=== PATIENT | female | born 1955 | race Two or more races ===

== ENCOUNTER 2019-04-10 10:27 | Observation (INO) ==
--- NOTE | 2019-04-10 10:56 | XRay Report ---
SINGLE VIEW CHEST CLINICAL HISTORY: Atypical chest pain. FINDINGS: An AP, portable, upright chest radiograph is obtained. No prior studies are available for c omparison at the time of dictation. The examination is degraded by portable technique and patient r otation. The heart is enlarged and there is atherosclerotic calcification with uncoiling of the thor acic aorta. The pulmonary vasculature is noncongested. There is mild elevation of the left hemidiaphr agm with bibasilar atelectasis. No airspace consolidation or large pleural effusion is identified. No pneumothorax is seen. The skeletal structures are osteopenic. The bony thorax is grossly intact. An indeterminant catheter projects over the left upper quadrant of the abdomen. Surgical clips project o jeremiah the lower neck. IMPRESSION: Cardiomegaly with no acute cardiopulmonary abnormality. Electronically signed by: Chemo Uribe M.D. 04/10/2019 10:54 AM
[2019-04-10 11:07] LABS: Basophils # (auto) 0.02 K/uL (0-0.2); Basophils % (auto) 0.2 %; Eosinophils # (auto) 0.31 K/uL (0-0.5); Eosinophils % (auto) 3.2 %; Hematocrit (blood only) 30.1 % (37-47); Hemoglobin 10.2 g/dL (12.0-16.0); Immature Granulocytes # (auto) 0.02 K/uL (0.00-0.02); Immature Granulocytes % (auto) 0.2 %; Lymphocytes # (auto) 0.76 K/uL (1.2-3.4); Lymphocytes % (auto) 7.9 %; Mean Corpuscular Hgb Conc 33.9 g/dL (32-36); Mean Corpuscular Volume 91.5 fL (80-100); Mean Platelet Volume 10.3 fL (7.4-10.4); Monocytes % (auto) 9.4 %; Neutrophils # (auto) 7.59 K/uL (1.4-6.5); Neutrophils % (auto) 79.1 %; Platelet Count 199 K/uL (130-400); RDW Coefficient of Variation 14.6 % (11.5-14.5); Red Blood Count 3.29 M/uL (4.2-5.4)
[2019-04-10 11:19] LABS: INR 1.1 (0.9-1.1); Partial Thromboplastin Ratio 0.9; Partial Thromboplastin Time 23.4 Seconds (21.0-31.0); Prothrombin Time 11.4 Seconds (9.0-12.0)
[2019-04-10 11:45] LABS: Alanine Aminotransferase 14 U/L (12-78); Albumin Globulin Ratio 0.5 (0.9-2); Albumin Level 2.1 gm/dl (3.4-5.0); Alkaline Phosphatase 82 U/L (45-117); Aspartate Aminotransferase 14 U/L (15-37); BUN Creatinine Ratio 5.4 (10-20); Bilirubin,Total 0.4 mg/dl (0.2-1); Blood Urea Nitrogen 54 mg/dl (7-18); Calcium 8.4 mg/dl (8.5-10.1); Carbon Dioxide 27 mmol/L (21-32); Chloride 97 mmol/L (98-107); Creatinine Clr Calc Pharmacy 4.7 ml/min; Est GFR (African American) 4.4; Est GFR (Non-African American) 3.8; Globulin 4.4 gm/dl (2.5-4.0); Glucose 97 mg/dl (70-99); Magnesium 1.8 mg/dl (1.8-2.4); Potassium 3.5 mmol/L (3.5-5.1); Sodium 134 mmol/L (136-145); Total Protein 6.5 gm/dl (6.4-8.2); Troponin I < 0.015 ng/ml (0-0.045)
--- NOTE | 2019-04-10 12:59 | History & Physical Report ---
Date of Service April 10, 2019 Assessment & Plan (1) Chest pain: - Admit to tele for observation for r/o - Trend cardiac biomarkers, initial set was negative at OSH yesterday and again this morning. Next set at 1900. - EKG reviewed as above, NSR with ST wave changes or signs of ischemia - Check 2 D echo now - Consult cardiology - If negative enzymes can consider a stress test tomorrow morning (2) Tobacco use disorder: - Possible that this is a pleurisy causing the chest pain, nonreproducible on palpation. - Smokes currently, 1/2 ppd, cessation encouraged, offered nicotine patch but pt declined. - Trial solumedrol 40 mg Q8H to see if this improves pain - CTPE from 04/09/19 reviewed from OSH and negative for PE (3) Chronic kidney disease with peritoneal dialysis as preferred modality, stage 5: (4) Hx of kidney transplant: - nephrology consulted - Transplant initially in 1994 and again in 2001. - Continue Renvela 3200 mg PO with meals, Prograf 1 mg PO daily, cinacalcet 30 PO Q2D, multivitamin - Pt has had peritoneal dialysis for many years, site appears well healed, no erythema surrounding (5) Breast cancer: - Noted, [id number], R sided s/p surgical resection, no hx of chemotherapy. (6) Ovarian cancer: - Noted, [id number], s/p surgical resection (7) Basal cell carcinoma of left hand: - noted, stable (8) Osteoporosis: - Continnue Vit D. supplementation (9) Osteoarthritis: (10) Sarcopenia: -Albumin = 2.1, will order boost ACHS (11) Hx of deep venous thrombosis: -History of such many years ago, no longer on anticoagulation (12) Anemia: -Hemoglobin = 10.2, hematocrit 30.0, -Continue Epogen IV q. 14 days, Auryxia 420 mg p.o. TID, (13) GERD (gastroesophageal reflux disease): (14) Barretts esophagus: - Noted, continue pantoprazole daily - Continue reglan 5 mg QID (15) Restless leg syndrome: - Stable, note that reglan may exaggerate this (16) HTN (hypertension): -Continue carvedilol 12.5 mg twice daily, ASA 81 mg daily, hydralazine 50 mg daily, (17) HLD (hyperlipidemia): - Cont rosuvastatin 20 mg HS (18) DVT prophylaxis: - teds, heparin subq History of Present Illness Primary Care Provider: Samir Vance This is a 63-year-old female with PMHx of breast cancer status post radiation, no chemotherapy, HTN, HLD, kidney transplant, CKD, peritoneal dialysis, osteoporosis, restless leg syndrome, ovarian cancer, 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 Patient presents to our facility from [facility], [facility], for increased chest pain. She was in the ER yesterday and reported that chest pain had begun on 04/07/2019. It radiates from her left chest to her shoulder blades and up the left jaw, she also vomited once this morning. Pt states pain is waxing and waning in nature, and is aggravated whenever she takes deep breaths, leans forward, or attempts to go up one flight of stairs. She has developed a nonproductive cough in the past 3 days. Patient denies fevers, chills or sweats. She has been doing home peritoneal dialysis herself. Patient follows with [facility] dialysis once per month. Patient reports that she refused to be transferred from [facility] is [facility] yesterday while in their ER. Patient went home from the ER last evening and then proceeded to come to our hospital this morning. She reports her chest pain was the same upon leaving the hospital last night, overnight and this morning. Her nausea has been controlled with Zofran. Chest pain is slightly better at this time. She reports no other acute complaints. Allergies Allergy/AdvReac Type Severity Reaction Status Date / Time No Known Allergies Allergy Unverified 04/10/19 12:31 Home Medications Home Medications Medication Instructions Recorded Confirmed Type B complex-vitamin C-folic acid 0.8 mg PO DAILY 04/10/19 04/10/19 History [Nephro-Es] aspirin [Aspir-Low] 81 mg PO DAILY 04/10/19 04/10/19 History calcitriol 0.25 mcg PO DAILY 04/10/19 04/10/19 History carvedilol 12.5 mg PO BID 04/10/19 04/10/19 History cholecalciferol (vitamin D3) 1,000 unit PO DAILY 04/10/19 04/10/19 History [Vitamin D3] cinacalcet [Sensipar] 30 mg PO Q2D 04/10/19 04/10/19 History cyanocobalamin (vitamin B-12) 500 mcg PO DAILY 04/10/19 04/10/19 History [Vitamin B-12] epoetin caty [Epogen] 10,000 unit IV Q14D 04/10/19 04/10/19 History ferric citrate [Auryxia] 420 mg PO TID 04/10/19 04/10/19 History hydralazine 50 mg PO DAILY 04/10/19 04/10/19 History iron,carbonyl-vitamin C [Vitron-C] 1 tab PO DAILY 04/10/19 04/10/19 History metoclopramide HCl 5 mg PO QID 04/10/19 04/10/19 History multivitamin 1 tab PO DAILY 04/10/19 04/10/19 History pantoprazole 40 mg PO DAILY 04/10/19 04/10/19 History rosuvastatin 20 mg PO HS 04/10/19 04/10/19 History sevelamer carbonate [Renvela] 3,200 mg PO WM 04/10/19 04/10/19 History tacrolimus 1 mg PO DAILY 04/10/19 04/10/19 History Past Med/Surg History Medical History HLD (hyperlipidemia) HTN (hypertension) Restless leg syndrome Barretts esophagus GERD (gastroesophageal reflux disease) Anemia Hx of deep venous thrombosis Sarcopenia Osteoarthritis Osteoporosis Basal cell carcinoma of left hand Ovarian cancer Breast cancer Chronic kidney disease with peritoneal dialysis as preferred modality, stage 5 Chest pain (Acute) Kidney disease Surgical History Hx of kidney transplant x2, 1994 and 2001 Social History Preferred Language: Bengali Feels Safe at Home: Yes Smoking Status: Current some day smoker Review of Systems Review of Systems: Constitutional: No fever, sweats or chills Eyes: No diplopia, no worsening or blurred vision ENT: normal hearing, no trouble swallowing Respiratory: No cough, sputum, dyspnea at rest or on exertion Cardiovascular: + chest pain, tightness as per HPI. Abdomen: No pain, nausea, vomiting, diarrhea or constipation Musculoskeletal: No joint pain, calf pain, swelling Neurologic: No weakness, numbness/tingling, or balance problems Psychiatric: No anxiety or depression Skin: No rash or itch Physical Exam Physical Exam: General: awake, alert, no apparent distress Head: Normocephalic, atraumatic ENT: PERRL, EOMI, no pharyngeal exudate, mucous membranes moist Chest: Nontender to palpation, Diminished breath sounds at bases, + cough nonproductive, on room air, no other adventitious breath sounds Cardiac: Regular rate and rhythm, no murmur, no JVD, normal peripheral pulses, good capillary refill Abdominal: NABS x 4 quadrants, peritoneal dialysis catheter in the LUQ, soft, nontender to palpation, no rebound, guarding or tenderness Extremities: Normal inspection, trace peripheral edema in the left leg compared to the right, no erythema, calfs nontender to palpation Psych: Normal mood and affect Neuro: AAO x 3, no motor deficits, speech is clear Skin: no rash or erythema Results & Data Vital Signs (Past 12 Hours) Vital Signs Temp Pulse Pulse Resp BP BP Pulse Ox 04/10/19 11:53 71 16 118/76 94 04/10/19 11:01 94 04/10/19 10:33 37.1 C 64 16 126/74 94 Diagnostic Findings SINGLE VIEW CHEST CLINICAL HISTORY: Atypical chest pain. FINDINGS: An AP, portable, upright chest radiograph is obtained. No prior studies are available for comparison at the time of dictation. The examination is degraded by portable technique and patient rotation. The heart is enlarged and there is atherosclerotic calcification with uncoiling of the thoracic aorta. The pulmonary vasculature is noncongested. There is mild elevation of the left hemidiaphragm with bibasilar atelectasis. No airspace consolidation or large pleural effusion is identified. No pneumothorax is seen. The skeletal structures are osteopenic. The bony thorax is grossly intact. An indeterminant catheter projects over the left upper quadrant of the abdomen. Surgical clips project over the lower neck. IMPRESSION: Cardiomegaly with no acute cardiopulmonary abnormality. ECG Additional Comments: 10-APR-2019 10:33:55 [facility]-EDSTAT ROUTINE RETRIEVAL Normal sinus rhythm Normal ECG No previous ECGs available Confirmed by Kb Gupta ([id number]) on 04/10/2019 12:39:14 PM 25mm/s 10mm/mV 150Hz 9.0.8 12SL 241 HD ESDRAS: 12 Referred by: REFERRED SELF Confirmed By: Kb Victor. rate 62 BPM DE interval 144 ms QRS duration 78 ms QT/QTc 430/436 ms P-R-T axes 21 6 48 Code Status & VTE Plan Code Status Limited code, does not want mechanical ventilation or intubation-discussed with patient and her sister at bedside. Supervising Physician Co-Signing Physician Notes The patient was seen and examined by me and I agree with the assessment and plan done by Cynthia Kwon PA-C. The patient appears to have pleuritic type chest pain. She has a nonproductive cough and may have a viral illness. No evidence of PE on the CT scan done at [facility]. There is also no clinical evidence of pneumonia. The pain is sharp and intermittent, worse with deep breathing and changes in position. It is not superficially palpable. Heart rhythm is regular. Abdomen exam is benign. Neurological exam is benign. I suspect she has a pleurisy and she will receive several doses of methylprednisolone. Cardiac echo will be obtained along with troponin series. She does have end-stage renal disease after renal transplantation and is on peritoneal dialysis daily. Nephrology consult has been requested. PG Care Time/CCT Total # of Minutes Spent Total Time Spent with Patient: Total time spent is greater than 50% in coordination of care (as documented) at patient's floor/unit and/or counseling patient:
[2019-04-10] MEDS ORDERED: ACETAMINOPHEN 325 MG TAB PO PRN (16:01)
[2019-04-10] MEDS ORDERED: ONDANSETRON INJ 2 MG/ML 2 ML VIAL IV PRN (16:01)
--- NOTE | 2019-04-10 16:23 | Emergency Department Note ---
Entered by Sydney Tuttle acting as a scribe for Mike Gillis DO History of Present Illness General Chief complaint: Chest Pain Stated complaint: CHEST PAIN Source: patient Mode of arrival: wheelchair Limitations: no limitations History of Present Illness Onset (ago): day(s) 2 Location: chest Radiation: non-radiation Pain Consistency: + constant Maximum Pain Intensity: 9 Current Pain Intensity: 9 Relieved By: + none Exacerbated By: + movement and + other (breathing) Associated symptoms: + nausea/vomiting and + shortness of breath The patient is a 63 year old female who presents to the ED with complaints of chest pain that started 3 days ago. She states the pain radiates into her back and up into her neck. She rates her discomfort as a 9/10 in severity. Bending and movement worsen her pain. She has never experienced similar pain in the past. The patient states she has been short of breath and deep inspiration worsens her pain. She went to a local ED last night and states they told her she had an enlarged heart and wanted to transfer her to a hospital in [place], but she declined the transfer. She did vomit last night. She has never had a stress test or cardiac catheterization. Home Medications Home Medications Medication Instructions Recorded Confirmed Type B complex-vitamin C-folic acid 0.8 mg PO DAILY 04/10/19 04/10/19 History [Nephro-Se] aspirin [Aspir-Low] 81 mg PO DAILY 04/10/19 04/10/19 History calcitriol 0.25 mcg PO DAILY 04/10/19 04/10/19 History carvedilol 12.5 mg PO BID 04/10/19 04/10/19 History cholecalciferol (vitamin D3) 1,000 unit PO DAILY 04/10/19 04/10/19 History [Vitamin D3] cinacalcet [Sensipar] 30 mg PO Q2D 04/10/19 04/10/19 History cyanocobalamin (vitamin B-12) 500 mcg PO DAILY 04/10/19 04/10/19 History [Vitamin B-12] epoetin caty [Epogen] 10,000 unit IV Q14D 04/10/19 04/10/19 History ferric citrate [Auryxia] 420 mg PO TID 04/10/19 04/10/19 History hydralazine 50 mg PO DAILY 04/10/19 04/10/19 History iron,carbonyl-vitamin C [Vitron-C] 1 tab PO DAILY 04/10/19 04/10/19 History metoclopramide HCl 5 mg PO QID 04/10/19 04/10/19 History multivitamin 1 tab PO DAILY 04/10/19 04/10/19 History pantoprazole 40 mg PO DAILY 04/10/19 04/10/19 History rosuvastatin 20 mg PO HS 04/10/19 04/10/19 History sevelamer carbonate [Renvela] 3,200 mg PO WM 04/10/19 04/10/19 History tacrolimus 1 mg PO DAILY 04/10/19 04/10/19 History Allergies Allergy/AdvReac Type Severity Reaction Status Date / Time No Known Allergies Allergy Unverified 04/10/19 12:31 Past Med/Surg History Medical History HLD (hyperlipidemia) HTN (hypertension) Restless leg syndrome Barretts esophagus GERD (gastroesophageal reflux disease) Anemia Hx of deep venous thrombosis Sarcopenia Osteoarthritis Osteoporosis Basal cell carcinoma of left hand Ovarian cancer Breast cancer Chronic kidney disease with peritoneal dialysis as preferred modality, stage 5 Chest pain (Acute) Kidney disease Surgical History Hx of kidney transplant x2, 1994 and 2001 Social History Preferred Language: Tongan Feels Safe at Home: Yes Smoking Status: Current some day smoker Review of Systems See HPI for pertinent positives & negatives. and A total of 10 systems reviewed and were otherwise negative Physical Exam Vital Signs Vital Signs - 24 hr 04/10/19 10:33 04/10/19 11:01 04/10/19 11:53 Temperature 37.1 C Temperature Source Oral Sepsis Recent Fever Within 48 Hours No Sepsis New/Unexplained Change in Mental Status No Sepsis Action Taken by Nursing No Action Required Pulse Rate 64 Pulse Rate [Left] 71 Respiratory Rate 16 16 Respiratory Effort / Characteristics Spontaneous Blood Pressure 126/74 Blood Pressure [Left Arm] 118/76 Blood Pressure Mean 91 Blood Pressure Mean [Left Arm] 90 Blood Pressure Position Lying Blood Pressure Position [Left Arm] Lying Pulse Oximetry 94 94 94 Oxygen Delivery Method Room Air Room Air 04/10/19 13:28 Temperature Temperature Source Sepsis Recent Fever Within 48 Hours Sepsis New/Unexplained Change in Mental Status Sepsis Action Taken by Nursing Pulse Rate Pulse Rate [Left] 67 Respiratory Rate 16 Respiratory Effort / Characteristics Non-Labored Spontaneous Blood Pressure Blood Pressure [Left Arm] 136/86 Blood Pressure Mean Blood Pressure Mean [Left Arm] 102 Blood Pressure Position Blood Pressure Position [Left Arm] Lying Pulse Oximetry 94 Oxygen Delivery Method Room Air GENERAL: Patient is awake, alert, and in no acute distress.Patient is resting comfortably and showing no signs of anxiety EYES: The conjunctivae are clear. The pupils are round and reactive. EARS, NOSE, MOUTH AND THROAT: The nose is without any evidence of any deformity. Mucous membranes are moist.Tongue is midline NECK: The neck is nontender and supple. RESPIRATORY: Normal respiratory effort is noted. There is no evidence of wheezing rhonchi or rales to auscultation. CARDIOVASCULAR: Regular rate and rhythm noted. There no murmurs rubs or gallops normal S1 normal S2 GASTROINTESTINAL: The abdomen is soft. Bowel sounds are present in all quadrants. Abdomen is nontender. MUSCULOSKELETAL/EXTREMITIES: There is no evidence of gross deformity. There is some reproducible pain over the left chest with movement of the left shoulder, no deformity was noted. SKIN: There is no obvious evidence of any rash. There are no petechiae, pallor or cyanosis noted. NEUROLOGIC: Patient is awake alert and oriented x3. Course 1043: The patient was evaluated in room C3 and a complete history and physical were performed. 1215: I reevaluated the patient. I discussed her test results and my recommendation she remain in the hospital for further evaluation and management. She is agreeable with the plan. 1237: I discussed the patients case with Darcy Chaidez. The patient will be further evaluated. Consultations Consultation #1: I [facility] the [facility] The patient will be further evaluated. Time: 12:37 Medical Decision Making Differential Diagnosis Differential: Cardiac Ischemia (STEMI, NSTEMI, Unstable Angina, etc), Aortic Dissection, Arrhythmia, Pulmonary Embolism, Pneumonia, Pneumothorax, MSK, Infectious, Pericarditis/Myocarditis, Esophageal Rupture, Gastrointestinal, amongst other pathologies entertained. Medical Records Attestation: I reviewed the patient's medical records. Home Medications Current Medication List: was personally reviewed by me Laboratory Data Attestation: I reviewed the patient's lab results. Result diagrams: 04/10/19 10:53 04/10/19 10:53 Lab Results 04/10/19 04/10/19 04/10/19 Range/Units 10:53 10:53 10:53 WBC 9.60 (4.8-10.8) K/uL RBC 3.29 L (4.2-5.4) M/uL Hgb 10.2 L (12.0-16.0) g/dL Hct 30.1 L (37-47) % MCV 91.5 (80-100) fL MCH 31.0 (25-34) pg MCHC 33.9 (32-36) g/dL RDW Std Deviation 49.0 H (36.4-46.3) fL RDW Coeff of Natanael 14.6 H (11.5-14.5) % Plt Count 199 (130-400) K/uL MPV 10.3 (7.4-10.4) fL Immature Gran % (Auto) 0.2 % Neut % (Auto) 79.1 % Lymph % (Auto) 7.9 % [place] % (Auto) 9.4 % Eos % (Auto) 3.2 % Baso % (Auto) 0.2 % Immature Gran # (Auto) 0.02 (0.00-0.02) K/uL Neut # (Auto) 7.59 H (1.4-6.5) K/uL Lymph # (Auto) 0.76 L (1.2-3.4) K/uL [place] # (Auto) 0.90 H (0.11-0.59) K/uL Eos # (Auto) 0.31 (0-0.5) K/uL Baso # (Auto) 0.02 (0-0.2) K/uL PT 11.4 (9.0-12.0) Seconds INR 1.1 (0.9-1.1) APTT 23.4 (21.0-31.0) Seconds PTT Ratio 0.9 Sodium 134 L (136-145) mmol/L Potassium 3.5 (3.5-5.1) mmol/L Chloride 97 L (98-107) mmol/L Carbon Dioxide 27 (21-32) mmol/L Anion Gap 10.0 (3-11) BUN 54 H (7-18) mg/dl Creatinine 9.91 H* (0.6-1.2) mg/dl Est Cr Clr Drug Dosing 4.7 ml/min Est GFR ( Amer) 4.4 Est GFR (Non-Af Amer) 3.8 BUN/Creatinine Ratio 5.4 L (10-20) Glucose 97 (70-99) mg/dl Calcium 8.4 L (8.5-10.1) mg/dl Magnesium 1.8 (1.8-2.4) mg/dl Total Bilirubin 0.4 (0.2-1) mg/dl AST 14 L (15-37) U/L ALT 14 (12-78) U/L Alkaline Phosphatase 82 (45-117) U/L Troponin I < 0.015 (0-0.045) ng/ml Total Protein 6.5 (6.4-8.2) gm/dl Albumin 2.1 L (3.4-5.0) gm/dl Globulin 4.4 H (2.5-4.0) gm/dl Albumin/Globulin Ratio 0.5 L (0.9-2) Lipase 119 (73-393) U/L Imaging Data Radiologist's Impression: Radiology results as stated below per my review and the radiologist's interpretation: SINGLE VIEW CHEST CLINICAL HISTORY: Atypical chest pain. FINDINGS: An AP, portable, upright chest radiograph is obtained. No prior studies are available for comparison at the time of dictation. The examination is degraded by portable technique and patient rotation. The heart is enlarged and there is atherosclerotic calcification with uncoiling of the thoracic aorta. The pulmonary vasculature is noncongested. There is mild elevation of the left hemidiaphragm with bibasilar atelectasis. No airspace consolidation or large pleural effusion is identified. No pneumothorax is seen. The skeletal structures are osteopenic. The bony thorax is grossly intact. An indeterminant catheter projects over the left upper quadrant of the abdomen. Surgical clips project over the lower neck. IMPRESSION: Cardiomegaly with no acute cardiopulmonary abnormality. Electronically signed by: Chemo Uribe M.D. 04/10/2019 10:54 AM ECG Data Attestation: I personally reviewed and interpreted this ECG as follows: Indication: chest pain Rate (beats per minute): 62 Rhythm: normal sinus Findings: + other (No acute ST segments); no ectopy Comparison ECG Date: from (04/09/19) Change: no significant change Blood Pressure Blood Pressure Findings: Normal blood pressure Blood Pressure Disposition: did not require urgent referral MDM Narrative The patient is a 63-year-old female who presented to the emergency department for an evaluation of chest pain. Patient describes left-sided chest pain which is somewhat reproducible with movement of the left arm but was also reproducible on deep inspiration. The pain appears pleuritic in nature. She does have a history of hypertension tobacco use but also has a history of renal failure requiring peritoneal dialysis. The patient was seen at [facility] last evening for similar complaints. At that time she had a CT the chest obtained which did not show any signs of pulmonary embolus. It was recommended that the patient be admitted for further cardiac work-up. Unfortunately they do not have nephrology available at their facility this weekend so it was advised that the patient be transferred to a tertiary center such as [facility]. The patient did not wish to be transferred at that time and went home. She returns to our emergency department today because of continued symptoms. The patient had an EKG which did not show any significant change from last evening. Her cardiac biomarker was negative. I discussed the patient's laboratory and radiographic studies with her. I also discussed the limitations of the emergen cy department work-up for chest pain with her. Given her risk factors I discussed her case with the on-call [facility] hospitalist group. They have agreed to evaluate the patient in the emergency department for further management and disposition. Certainly the patient does not appear to have an ischemic event going on at this time given her ongoing symptoms and normal cardiac biomarkers however since the patient's local emergency department will not be able to do any further work-up past the emergency department work-up I am not comfortable discharging her home as she lives approximately an hour away from our facility. I discussed this plan with the patient and she was agreeable. She was reevaluated multiple times. Impression & Plan Chest pain, Renal failure, Pleurisy Discharge Plan Visit Data *Final* Discharge Date/Time: 04/10/19 15:07 Chief Complaint: Chest Pain Stated Complaint: CHEST PAIN ED Provider: Mike Gillis Discharge Problem: Chest pain, Renal failure, Pleurisy Patient Disposition: Admitted As Inpatient Discharge Instructions Interventions: ED Discharge Assessment Last Done: 04/10/19 15:07 The [email or web address]'s documentation has been prepared under my direction and personally reviewed by me in its entirety. I confirm that the note above accurately reflects all work, treatment, procedures, and medical decision making performed by me.
[2019-04-10] MEDS: METOCLOPRAMIDE HCL 5 MG TABLET PO SCH ×2 (17:44→20:18)
[2019-04-10] MEDS: methylPREDNISolone 40 MG in SYRINGE 0 ML IV SCH ×2 (17:45→23:44)
[2019-04-10] MEDS: SEVELAMER HCL 800 MG TABLET PO SCH (17:45)
[2019-04-10] MEDS: NICOTINE 14 MG/24 HR PATCH TD SCH (17:45)
[2019-04-10] MEDS: HEPARIN SOD 5,000 UNIT/0.5 ML VIAL SQ SCH (20:17)
[2019-04-10] MEDS: CARVEDILOL 12.5 MG TAB PO SCH (20:18)
[2019-04-10] MEDS ORDERED: ROSUVASTATIN CALCIUM 20 MG TAB PO SCH (21:00)
[2019-04-11 03:10] LABS: Hematocrit (blood only) 28.3 % (37-47); Hemoglobin 9.7 g/dL (12.0-16.0); Mean Corpuscular Hgb Conc 34.3 g/dL (32-36); Mean Corpuscular Volume 90.7 fL (80-100); Mean Platelet Volume 10.1 fL (7.4-10.4); Platelet Count 190 K/uL (130-400); RDW Coefficient of Variation 14.5 % (11.5-14.5); RDW Standard Deviation 47.4 fL (36.4-46.3); Red Blood Count 3.12 M/uL (4.2-5.4); White Blood Count 6.12 K/uL (4.8-10.8)
[2019-04-11 03:44] LABS: Alanine Aminotransferase 12 U/L (12-78); Albumin Globulin Ratio 0.5 (0.9-2); Alkaline Phosphatase 79 U/L (45-117); Aspartate Aminotransferase 12 U/L (15-37); BUN Creatinine Ratio 5.9 (10-20); Bilirubin,Total 0.3 mg/dl (0.2-1); Blood Urea Nitrogen 66 mg/dl (7-18); Calcium 8.2 mg/dl (8.5-10.1); Carbon Dioxide 26 mmol/L (21-32); Chloride 96 mmol/L (98-107); Creatinine Clr Calc Pharmacy 4.1 ml/min; Est GFR (African American) 3.7; Est GFR (Non-African American) 3.2; Globulin 4.2 gm/dl (2.5-4.0); Glucose 199 mg/dl (70-99); Potassium 4.2 mmol/L (3.5-5.1); Sodium 133 mmol/L (136-145); Total Protein 6.2 gm/dl (6.4-8.2); Troponin I < 0.015 ng/ml (0-0.045)
[2019-04-11] MEDS: SEVELAMER HCL 800 MG TABLET PO SCH (08:37)
[2019-04-11] MEDS: METOCLOPRAMIDE HCL 5 MG TABLET PO SCH (08:37)
[2019-04-11] MEDS: CARVEDILOL 12.5 MG TAB PO SCH (08:38)
[2019-04-11] MEDS: methylPREDNISolone 40 MG in SYRINGE 0 ML IV SCH (08:38)
[2019-04-11] MEDS ORDERED: MULTIVITAMIN TAB PO SCH (09:00)
[2019-04-11] MEDS ORDERED: HydrALAZINE TAB 50 MG TAB PO SCH (09:00)
[2019-04-11] MEDS ORDERED: CHOLECALCIFEROL 1,000 UNITS TAB PO SCH (09:00)
[2019-04-11] MEDS ORDERED: PANTOprazole 40 MG TAB PO SCH (09:00)
[2019-04-11] MEDS ORDERED: CALCITRIOL 0.25 MCG CAPSULE PO SCH (09:00)
[2019-04-11] MEDS ORDERED: ASPIRIN 81 MG ECTAB PO SCH (09:00)
[2019-04-11] MEDS ORDERED: CYANOCOBALAMIN 500 MCG TABLET (VITAMIN B-12) PO SCH (09:00)
[2019-04-11] MEDS ORDERED: NEPHROCAPS PO SCH (09:00)
[2019-04-11] MEDS ORDERED: TACROLIMUS 1 MG CAP PO SCH (09:00)
[2019-04-11] MEDS: NICOTINE 14 MG/24 HR PATCH TD SCH (09:19)
[2019-04-11] MEDS: HEPARIN SOD 5,000 UNIT/0.5 ML VIAL SQ SCH (09:19)
--- NOTE | 2019-04-11 09:53 | Nephrology Consultation ---
Date of Consultation April 11, 2019 Assessment & Plan (1) ESRD (end stage renal disease): -- Volume status and electrolyte balance are acceptable at this time -- Will provide NCCPD therapy tonight if patient remains hospitalized -- If discharge is anticipated, patient should resume NCCPD therapy at home tonight and schedule 1 week hospital follow up w/ her Emergency Room Nurse Dr. Kraus ([place], [place]) (2) Hx of kidney transplant: -- Continue low dose Tacrolimus (3) Chest pain: -- Evaluation as per Cardiology -- Possible pericarditis -- No contraindication to low dose steroid taper History of Present Illness Reason for Consultation: ESRD on NCCPD Attending Physician: Philip Jara MD History of Present Illness Ms. Jurado is a 63 year old white female who is seen at the request of Dr. Jara to provide NCCPD therapy and assist w/ medical management. Medical records in the EMR were reviewed today and are summarized as follows: Ms. Jurado developed nephrotic syndrome when she was 17 years of age. The cause of her nephrotic syndrome was not defined. in 1994 she progressed to ESRD and underwent LRRT from her father. 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 Ms. 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 Initially she received IHD via a THC but transtioned to NCCPD therapy after a few months. Ms. Jurado receives her dialysis care through the [facility] dialysis unit. Her Emergency Room Nurse has been Dr. Kraus. She denies any recent complications w/ her PD treatments. Specifically she has not had peritonitis, tunnel infection, or obstruction related to fibrin. Her current dialysis prescription is 4 exchanges/night, fill 10/dwell 90/drain 20, all 1.5% Delflex, no LBO. EDW is ~ 112 lbs. She reports that her adequacy (weekly KT/V) has been acceptable and she denies uremic symptoms. PMH also significant for HTN, hyperlipidemia, breast CA s/p lumpectomy, ovarian CA s/p DANA. Ms. Jurado presented to [facility] yesterday for evaluation of chest discomfort. Chest CT was negative for PE. It was recommended that patient be admitted for cardiac evaluation. Nephrology services are not available at [facility] on the weekend. Patient refused transfer to [facility]. She signed out AMA and later presented to [facility] ED due to persistent chest discomfort. Her discomfort is reproducible w/ L arm movement. ECG was without ST segment change. Troponin has been within normal limits. Cardiology has diagnosed pericarditis. Patient is now symptomatically improved following steroid administration. Allergies Allergy/AdvReac Type Severity Reaction Status Date / Time No Known Allergies Allergy Unverified 04/10/19 12:31 Home Medications Home Medications Medication Instructions Recorded Confirmed Type B complex-vitamin C-folic acid 0.8 mg PO DAILY 04/10/19 04/10/19 History [Nephro-Es] aspirin [Aspir-Low] 81 mg PO DAILY 04/10/19 04/10/19 History calcitriol 0.25 mcg PO DAILY 04/10/19 04/10/19 History carvedilol 12.5 mg PO BID 04/10/19 04/10/19 History cholecalciferol (vitamin D3) 1,000 unit PO DAILY 04/10/19 04/10/19 History [Vitamin D3] cinacalcet [Sensipar] 30 mg PO Q2D 04/10/19 04/10/19 History cyanocobalamin (vitamin B-12) 500 mcg PO DAILY 04/10/19 04/10/19 History [Vitamin B-12] epoetin caty [Epogen] 10,000 unit IV Q14D 04/10/19 04/10/19 History ferric citrate [Auryxia] 420 mg PO TID 04/10/19 04/10/19 History hydralazine 50 mg PO DAILY 04/10/19 04/10/19 History iron,carbonyl-vitamin C [Vitron-C] 1 tab PO DAILY 04/10/19 04/10/19 History metoclopramide HCl 5 mg PO QID 04/10/19 04/10/19 History multivitamin 1 tab PO DAILY 04/10/19 04/10/19 History pantoprazole 40 mg PO DAILY 04/10/19 04/10/19 History rosuvastatin 20 mg PO HS 04/10/19 04/10/19 History sevelamer carbonate [Renvela] 3,200 mg PO WM 04/10/19 04/10/19 History tacrolimus 1 mg PO DAILY 04/10/19 04/10/19 History prednisone 50 mg PO DAILY #15 tab 04/11/19 Rx Patient History Medical History HLD (hyperlipidemia) HTN (hypertension) Restless leg syndrome Barretts esophagus GERD (gastroesophageal reflux disease) Anemia Hx of deep venous thrombosis Sarcopenia Osteoarthritis Osteoporosis Basal cell carcinoma of left hand Ovarian cancer Breast cancer Chronic kidney disease with peritoneal dialysis as preferred modality, stage 5 Chest pain (Acute) Kidney disease Surgical History Hx of kidney transplant x2, 1994 and 2001 Social History Preferred Language: Nepali Communication Ability: Effective Equalizer Operator Required: No Beliefs That Will Affect Care: None Current Living Situation: Alone Feels Safe at Home: Yes Safety Concerns: Feels Safe At This Time Smoking Status: Current every day smoker Tobacco Type: cigarettes Do You Dip or Chew Tobacco: No Second Hand Exposure: Yes Hx Substance Use: No Review of Systems Constitutional: no fever Respiratory: no cough and no dyspnea Cardiovascular: no chest pain with activity Gastrointestinal: no abdominal pain, no vomiting and no diarrhea/loose stools Physical Exam Constitutional: not in distress Eyes: PERRL, conjunctivae normal, anicteric sclerae ENMT: external ear and nose normal, oropharynx normal Neck: trachea midline, no thyromegaly Respiratory: normal respiratory effort, lungs clear to auscultation Cardiovascular: RRR, no murmur, no edema No pericardial rub Gastrointestinal (Abdomen): normal bowel sounds, soft, nontender, no hepatosplenomegaly PD catheter exit site without erythema or drainage. PD catheter tunnel is without fluctuance Neurologic: awake; not confused Motor/Sensory: no tremor and no asterixis Results & Data Vital Signs (Past 12 Hours) Vital Signs Temp Pulse Pulse Resp BP BP Pulse Ox 04/11/19 08:16 35.9 C L 59 L 140/85 94 04/11/19 03:15 36.5 C 58 L 20 118/67 118/67 92 04/10/19 23:50 95 04/10/19 23:44 36 C L 65 18 104/61 85 L 04/10/19 23:40 72 Laboratory Results Laboratory Tests 04/10/19 04/10/19 04/11/19 10:53 18:44 02:58 WBC Hgb Hct Plt Count Sodium 133 L Potassium 4.2 D Chloride 96 L Carbon Dioxide 26 BUN 66 H Creatinine 11.30 H* D Glucose 199 H Total Bilirubin 0.3 AST 12 L ALT 12 Alkaline Phosphatase 79 Troponin I < 0.015 < 0.015 < 0.015 Albumin 2.0 L 04/11/19 02:58 WBC 6.12 Hgb 9.7 L Hct 28.3 L Plt Count 190 Sodium Potassium Chloride Carbon Dioxide BUN Creatinine Glucose Total Bilirubin AST ALT Alkaline Phosphatase Troponin I Albumin Diagnostic Findings ECG: NSR. No ST segment changes Echo: LVEF 55 - 60%. No WMA
--- NOTE | 2019-04-11 09:59 | Cardiology Consultation ---
Date of Consultation April 11, 2019 Assessment & Plan (1) Chest pain: Negative enzymes and normal ECG in the context of ongoing chest pain are not consistent with ischemic etiology for her symptoms. Pleuritic component in dialysis patient suggests percarditis, but no effusion, rub, or ECG changes to confirm this. Could use empirin NSAIDs and consider low dose colchicine (0.3 mg twice weekly) if symptoms persist or increase. (2) Renal failure: Agree with nephrology input to determine whether adjustment in dialysis protocol would be warranted. (3) Pleurisy: Pericarditis vs. other pleuritic phenomenon (viral, etc.) (4) HTN (hypertension): Normotensive on carvedilol and hydralazine. History of Present Illness Attending Physician: Philip Jara MD History of Present Illness 63-year-old woman on peritoneal dialysis with no cardiac history who was admitted with several days of fatigue and severe chest pain, cardiac enzymes were negative x3 in ECG is unremarkable. Of note, her symptoms include a positional component, her chest discomfort was worse when leaning forward or taking a deep breath. Echocardiogram showed no wall motion abnormalities and no pericardial effusion. She notes that the pain was 9/10 yesterday and down to 2/10 today. Aside from current mild chest discomfort, she is comfortable and anxious to return home. Allergies Allergy/AdvReac Type Severity Reaction Status Date / Time No Known Allergies Allergy Unverified 04/10/19 12:31 Home Medications Home Medications Medication Instructions Recorded Confirmed Type B complex-vitamin C-folic acid 0.8 mg PO DAILY 04/10/19 04/10/19 History [Nephro-Es] aspirin [Aspir-Low] 81 mg PO DAILY 04/10/19 04/10/19 History calcitriol 0.25 mcg PO DAILY 04/10/19 04/10/19 History carvedilol 12.5 mg PO BID 04/10/19 04/10/19 History cholecalciferol (vitamin D3) 1,000 unit PO DAILY 04/10/19 04/10/19 History [Vitamin D3] cinacalcet [Sensipar] 30 mg PO Q2D 04/10/19 04/10/19 History cyanocobalamin (vitamin B-12) 500 mcg PO DAILY 04/10/19 04/10/19 History [Vitamin B-12] epoetin caty [Epogen] 10,000 unit IV Q14D 04/10/19 04/10/19 History ferric citrate [Auryxia] 420 mg PO TID 04/10/19 04/10/19 History hydralazine 50 mg PO DAILY 04/10/19 04/10/19 History iron,carbonyl-vitamin C [Vitron-C] 1 tab PO DAILY 04/10/19 04/10/19 History metoclopramide HCl 5 mg PO QID 04/10/19 04/10/19 History multivitamin 1 tab PO DAILY 04/10/19 04/10/19 History pantoprazole 40 mg PO DAILY 04/10/19 04/10/19 History rosuvastatin 20 mg PO HS 04/10/19 04/10/19 History sevelamer carbonate [Renvela] 3,200 mg PO WM 04/10/19 04/10/19 History tacrolimus 1 mg PO DAILY 04/10/19 04/10/19 History prednisone 50 mg PO DAILY #15 tab 04/11/19 Rx Patient History Medical History HLD (hyperlipidemia) HTN (hypertension) Restless leg syndrome Barretts esophagus GERD (gastroesophageal reflux disease) Anemia Hx of deep venous thrombosis Sarcopenia Osteoarthritis Osteoporosis Basal cell carcinoma of left hand Ovarian cancer Breast cancer Chronic kidney disease with peritoneal dialysis as preferred modality, stage 5 Chest pain (Acute) Kidney disease Surgical History Hx of kidney transplant x2, 1994 and 2001 Social History Preferred Language: Macedonian Communication Ability: Effective 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 Beliefs That Will Affect Care: None Current Living Situation: Alone Feels Safe at Home: Yes Safety Concerns: Feels Safe At This Time Smoking Status: Current every day smoker Tobacco Type: cigarettes Do You Dip or Chew Tobacco: No Second Hand Exposure: Yes Hx Substance Use: No Review of Systems Review of Systems: All systems reviewed & are unremarkable except as noted in HPI & below Constitutional: + fatigue; no fever and no chills Eyes: no problem reported Ear, Nose, Mouth, Throat: no problem reported Respiratory: no cough, no dyspnea and no dyspnea on exertion Cardiovascular: as per Subjective / HPI and + chest pain; no orthopnea, no syncope and no edema Gastrointestinal: no problem reported Genitourinary: no difficulty urinating and no problem reported Musculoskeletal: no joint pain and no muscle weakness Integumentary: no rash and no new lesions Neurologic: no localized weakness and no behavioral changes Psychiatric: no depression Hematologic / Lymphatic: no easy bleeding and no easy bruising Physical Exam Physical Exam: No distress. Skin: No unusual lesions or ecchymosis. HEENT: Unremarkable. Neck: Jugular venous pulse at the clavicle at 90, no carotid bruits. Lungs: Clear and equal breath sounds bilaterally. No wheezing or crackles. Cardiac: Regular rhythm with normal S1 and S 2. No murmur or gallop. No rub appreciated. Abdomen: Benign. Extremities: Nontender without edema. Intact peripheral pulses. Neurologic: Normal affect, nonfocal Results & Data Vital Signs (Past 12 Hours) Vital Signs Temp Pulse Pulse Resp BP BP Pulse Ox 04/11/19 08:16 96.6 F L 59 L 140/85 94 04/11/19 03:15 97.7 F 58 L 20 118/67 118/67 92 04/10/19 23:50 95 04/10/19 23:44 96.8 F L 65 18 104/61 85 L 04/10/19 23:40 72 Laboratory Results 04/10/19 04/10/19 04/11/19 10:53 18:44 02:58 WBC Hgb Plt Count Sodium 133 L BUN 66 H Creatinine 11.30 H* D Troponin I < 0.015 < 0.015 < 0.015 04/11/19 02:58 WBC 6.12 Hgb 9.7 L Plt Count 190 Sodium BUN Creatinine Troponin I Diagnostic Findings ECG showed sinus rhythm at 62 bpm and was completely unremarkable. Echocardiogram showed normal LV size and systolic function with no regional wall motion abnormalities. Grade 1 diastolic dysfunction noted. Normal right size heart. Borderline aortic root dilatation with normal ascending aorta. No significant valvular disease.
--- NOTE | 2019-04-11 15:51 | Discharge Summary ---
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 Patient presents to our facility from [facility], [facility], for increased chest pain. She was in the ER yesterday and reported that chest pain had begun on 04/07/2019. It radiates from her left chest to her shoulder blades and up the left jaw, she also vomited once this morning. Pt states pain is waxing and waning in nature, and is aggravated whenever she takes deep breaths, leans forward, or attempts to go up one flight of stairs. She has developed a nonproductive cough in the past 3 days. Patient denies fevers, chills or sweats. She has been doing home peritoneal dialysis herself. Patient follows with [facility] dialysis once per month. Patient reports that she refused to be transferred from [facility] is [facility] yesterday while in their ER. Patient went home from the ER last evening and then proceeded to come to our hospital this morning. She reports her chest pain was the same upon leaving the hospital last night, overnight and this morning. Her nausea has been controlled with Zofran. Chest pain is slightly better at this time. She reports no other acute complaints. Principal Diagnosis Possible pericarditis Discharge Exam Constitutional not in distress Eyes PERRL, conjunctivae normal, anicteric sclerae ENMT external ear and nose normal, oropharynx normal Neck trachea midline, no thyromegaly Respiratory normal respiratory effort, lungs clear to auscultation Cardiovascular RRR, no murmur, no edema Gastrointestinal (Abdomen) normal bowel sounds, soft, nontender, no hepatosplenomegaly Neurologic awake; not confused Motor/Sensory: no tremor and no asterixis Discharge Data Allergies Allergy/AdvReac Type Severity Reaction Status Date / Time No Known Allergies Allergy Unverified 04/10/19 12:31 Consultations 04/10/19 12:40 ED Decision to Admit Stat 04/10/19 16:01 Consult Cardiology Routine Consult Case Management - Discharge Planning Routine Consult Nephrology Routine Hospital Course (1) Chest pain: Troponins and EKGs were negative for ischemia. Echo was normal. - [place] this could be pericarditis - She improved immediately and significantly on steroids. While steroids are not first-line for pericarditis, she's a sub- optimal candidate for NSAIDs or colchicine given her peritoneal dialysis. - Given 5-day taper of prednisone. If the pericarditis returns, she may need to trial an NSAID + colchicine with renal dosing and GI protection (PPI). (2) Tobacco use disorder: - Smokes currently, 1/2 ppd, cessation encouraged, offered nicotine patch but pt declined. - Trial solumedrol 40 mg Q8H to see if this improves pain - CTPE from 04/09/19 reviewed from OSH and negative for PE. (3) Chronic kidney disease with peritoneal dialysis as preferred modality, stage 5: (4) Hx of kidney transplant: - Transplant initially in 1994 and again in 2001. - Continue Renvela 3200 mg PO with meals, Prograf 1 mg PO daily, cinacalcet 30 PO Q2D, multivitamin - Pt has had peritoneal dialysis for many years, site appears well healed, no erythema surrounding. - No inpatient needs (5) Breast cancer: - Noted, [id number], R sided s/p surgical resection, no hx of chemotherapy. (6) Ovarian cancer: - Noted, [id number], s/p surgical resection (7) Basal cell carcinoma of left hand: - noted, stable (8) Osteoporosis: - Continnue Vit D. supplementation (9) Osteoarthritis: (10) Sarcopenia: -Albumin = 2.1, will order boost ACHS (11) Hx of deep venous thrombosis: -History of such many years ago, no longer on anticoagulation (12) Anemia: -Hemoglobin = 10.2, hematocrit 30.0, -Continue Epogen IV q. 14 days, Auryxia 420 mg p.o. TID, (13) GERD (gastroesophageal reflux disease): (14) Barretts esophagus: - Noted, continue pantoprazole daily - Continue reglan 5 mg QID (15) Restless leg syndrome: - Stable, note that reglan may exaggerate this (16) HTN (hypertension): -Continue carvedilol 12.5 mg twice daily, ASA 81 mg daily, hydralazine 50 mg daily, (17) HLD (hyperlipidemia): - Cont rosuvastatin 20 mg HS (18) DVT prophylaxis: - teds, heparin subq Total Time Total Time Spent Total Time Spent (In Minutes): 35 Total Time Includes: Examination of the Patient, Discharge Planning and Communication With Other Providers Discharge Plan Discharge Items Patient Disposition: Home - Self-Care Reason For Visit: CHEST PAIN Discharge Diagnosis: Possible pericarditis Discharge Goals: Decrease discomfort and Diagnostic testing Activity: Resume your previous activity Non-emergency contact: Primary Care Provider and Artists' Booking Representative Call non-emergency contact if: you have any medication questions and your symptoms worsen Follow-up/Referrals: Samir Vance DO [Primary Care Provider] - Diet: Dialysis Renal Addtl Provider Instructions: Ms. Jurado, You were admitted with chest pain. We had our pace analyst see you, and he felt the chest pain was due to irritation of the lining of the heart (pericarditis). The echo (ultrasound) of your heart looked good. Your troponins and EKGs were all normal meaning you did not have a heart attack, and we do not think your chest pain is from lack of blood flow to the heart muscle. Your chest pain rapidly improved with steroids, and we are discharging you on a short course of prednisone to help keep it away. Take 50 mg (5 tabs) of prednisone tomorrow (April 12) morning, then 40 mg (4 tabs) the next day, then 30 mg the next day, and so on until you take 1 tab, then stop. If it were to recur, you may need to be go back on steroids, or more likely a larger dose of aspirin along with a medication called colchicine. You can call your cloth piecer if the pain starts to come back. Prescriptions: New prednisone 10 mg tablet 50 mg PO DAILY Qty: 15 RF: 0 Continued multivitamin Tablet 1 tab PO DAILY RF: 0 aspirin [Aspir-Low] 81 mg Tablet,Delayed Release (Dr/Ec) 81 mg PO DAILY RF: 0 metoclopramide HCl 5 mg tablet 5 mg PO QID RF: 0 cyanocobalamin (vitamin B-12) [Vitamin B-12] 500 mcg Tablet 500 mcg PO DAILY RF: 0 pantoprazole 40 mg tablet,delayed release (DR/EC) 40 mg PO DAILY RF: 0 hydralazine 50 mg Tablet 50 mg PO DAILY RF: 0 Epogen 10,000 unit/mL Solution 10,000 unit IV Q14D RF: 0 calcitriol 0.25 mcg Capsule 0.25 mcg PO DAILY RF: 0 rosuvastatin 20 mg tablet 20 mg PO HS RF: 0 cinacalcet [Sensipar] 30 mg tablet 30 mg PO Q2D RF: 0 sevelamer carbonate [Renvela] 800 mg tablet 3,200 mg PO WM RF: 0 Vitron-C 65 mg iron- 125 mg Tablet,Delayed Release (Dr/Ec) 1 tab PO DAILY RF: 0 carvedilol 12.5 mg Tablet 12.5 mg PO BID RF: 0 Nephro-Es 0.8 mg Tablet 0.8 mg PO DAILY RF: 0 tacrolimus 1 mg Capsule 1 mg PO DAILY RF: 0 cholecalciferol (vitamin D3) [Vitamin D3] 1,000 unit Capsule 1,000 unit PO DAILY RF: 0 Auryxia 210 mg iron Tablet 420 mg PO TID RF: 0 Stand-Alone Forms: Call Back Authorization, [facility] Discharge Orders: Discharge Order (Routine); Ordered 04/11/19 Ordered By: Philip Jara Admission Data Admit Date/Time: 04/10/19 13:38 Attending Provider: Philip Jara Admit Provider: Iván Mathew Primary Care Provider: Samir Vance Other Providers: Kb Gupta ; Samir Troncoso ; Philip Jara Service: Telemetry Other Interventions: Discharge Summary Assessment (RN) Last Done: 04/11/19 10:41 DC Date/Time DO NOT enter until pt leaves facility: 04/11/19 12:00
[2019-04-19] MEDS ORDERED: EPOETIN ALFA 10,000 UNITS/ML VIAL IV SCH (09:00)
== END 2019-04-11 12:00 | disposition home or self-care (01) ==
LOC: 2S 10:27 → ED 10:27 → SUATTDRO 13:38 → 2S 15:07